=== PATIENT | female | born 1990 | race Caucasian/White ===

== ENCOUNTER 2023-12-09 18:44 | Day surgery (SDC) | payer BC ==
[2023-12-09] MEDS ORDERED: hydrALAZINE 20 MG/ML VIAL SLOW IVP PRN (19:30)
[2023-12-09 19:45] VITALS: BMI 26.8
== END 2023-12-09 22:45 | disposition home or self-care (01) ==
LOC: CSHLD/OP 18:44
PROVIDERS: ATTEND Advanced Practice Midwife
DX: O47.1 False labor at or after 37 completed weeks of gestation (principal); O34.211 Maternal care for low transverse scar from previous cesarean delivery; Z88.2 Allergy status to sulfonamides; Z3A.40 40 weeks gestation of pregnancy
CPT/HCPCS: 99283

== ENCOUNTER 2023-12-12 01:00 | Inpatient (IN) | payer BC ==
[2023-12-12 01:36] VITALS: BMI 28.4
[2023-12-12] MEDS ORDERED: Acetaminophen 500 MG TAB PO PRN (04:10)
[2023-12-12] MEDS ORDERED: Methylergonovine 0.2 MG/ML VIAL IM PRN (04:10)
[2023-12-12] MEDS ORDERED: Misoprostol 200 MCG TAB PR PRN (04:10)
[2023-12-12] MEDS ORDERED: Lidocaine 1% (PF) 30 ML VIAL SC PRN (04:10)
[2023-12-12] MEDS ORDERED: Diphenoxylate HCl/Atropine Tablet PO PRN (04:10)
[2023-12-12] MEDS ORDERED: Carboprost 250 MCG/ML AMP IM PRN (04:10)
[2023-12-12] MEDS ORDERED: Tranexamic Acid 1,000 MG/10 ML VIAL IVP PRN (04:10)
[2023-12-12] MEDS ORDERED: Promethazine HCl 25 MG/ML VIAL IM PRN ×3 (04:10→13:01)
[2023-12-12] MEDS ORDERED: hydrALAZINE 20 MG/ML VIAL SLOW IVP PRN ×2 (04:10→15:17)
[2023-12-12] MEDS ORDERED: Ibuprofen 800 MG TAB PO PRN (04:10)
[2023-12-12] MEDS ORDERED: Oxytocin 30 units/NS 500 ML 500 ML IV SCH ×2 (04:15)
[2023-12-12] MEDS: Lactated Ringer's 1,000 ML IV SCH (04:20)
[2023-12-12 04:59] LABS: Hematocrit 35.9 % (34.9-44.5); Hemoglobin 12.9 g/dL (12.0-15.5); Mean Corpuscular HGB CONC 35.9 g/dL (32.0-36.0); Mean Corpuscular Hemoglobin 32.3 pg (27.0-33.0); Mean Corpuscular Volume 89.8 fL (81.6-98.3); Mean Platelet Volume 11.7 fL (7.4-10.4); Platelet Count 201 10x3/uL (150-450); RBC Distribution Width 13.1 % (11.5-14.5)
[2023-12-12 05:38] LABS: Syphilis Antibody Nonreactive (Nonreactive); Syphilis Antibody Index 0.04 S/CO (<1.00 Non-Reactive)
[2023-12-12 05:40] LABS: HBsAg Index 0.14 S/CO (0-0.99); Hep B Surf Ag - L&D Non-Reactive S/CO (NonReactive)
[2023-12-12] MEDS: fentaNYL 50 mcg/mL 1 mL Vial SLOW IVP PRN (05:45)
[2023-12-12] MEDS: fentaNYL/Ropivacaine Epidural 100 ML ONE (07:45)
[2023-12-12] MEDS: Ondansetron PF 4 MG/2 ML Vial IVP PRN (09:43)
[2023-12-12] MEDS: CEFAZOLIN 2 GM VIAL ONE ×2 (11:23→17:28)
[2023-12-12] MEDS: Azithromycin 500 MG VIAL ONE ×2 (11:24→17:28)
[2023-12-12] MEDS ORDERED: Bicitra 30 ML UDCUP PO PRN (11:31)
[2023-12-12] MEDS ORDERED: Famotidine/PF 20 mg/2ml Vial SLOW IVP PRN (11:31)
[2023-12-12] MEDS ORDERED: Azithromycin 500 MG in Sodium Chloride 0.9% 250 ML 250 ML IVPB SCH (11:45)
[2023-12-12] MEDS ORDERED: CEFAZOLIN 2 GM in Sodium Chloride 0.9% 100 ML IVPB SCH (11:45)
[2023-12-12 12:17] LABS: Analyzer IN Cardio CS NICU; RapidComm Collect By CBN
[2023-12-12 12:20] LABS: Analyzer IN Cardio CS NICU; RapidComm Collect By CBN; pH (Cord, venous) 7.325 (7.250-7.350)
[2023-12-12] MEDS ORDERED: Naloxone HCl 0.4 mg/ml Vial IVP PRN ×4 (13:00→13:01)
[2023-12-12] MEDS ORDERED: Ondansetron PF 4 MG/2 ML Vial IVP PRN ×3 (13:00→13:01)
[2023-12-12] MEDS ORDERED: ePHEDrine Sulfate 50 MG/10 ML VIAL SLOW IVP PRN (13:00)
[2023-12-12] MEDS ORDERED: Acetaminophen 325 MG TAB PO PRN (13:00)
[2023-12-12] MEDS ORDERED: Moisturizing Cream (Eucerin) 113 GM JAR TOP PRN ×2 (13:00→13:01)
[2023-12-12] MEDS ORDERED: diphenhydrAMINE 50 MG/ML VIAL IVP PRN ×2 (13:00→13:01)
[2023-12-12] MEDS ORDERED: Lactated Ringer's 500 ML IV PRN (13:00)
[2023-12-12] MEDS ORDERED: Communication Order-Pharmacy FS SCH ×2 (13:00→13:15)
[2023-12-12] MEDS ORDERED: fentaNYL 2 mcg/Ropivacaine 0.2% Epidural 100 ML CADD EPIDURAL SCH (13:00)
[2023-12-12] MEDS ORDERED: Naloxone HCl 0.4 mg/ml Vial IV PRN (13:01)
[2023-12-12] MEDS ORDERED: Meperidine HCl/PF 25 MG (1 mL) VIAL SLOW IVP PRN (13:01)
[2023-12-12] MEDS ORDERED: fentaNYL 50 mcg/mL 1 mL Vial SLOW IVP PRN (13:01)
[2023-12-12] MEDS: Ketorolac Tromethamine 30 MG (1 mL) VIAL IVP SCH (14:52)
[2023-12-12] MEDS ORDERED: Boostrix 0.5 ML (Tdap) VIAL (>/=7 yrs of age) IM ONE (15:17)
[2023-12-12] MEDS: fentaNYL 50 mcg/mL 1 mL Vial ONE ×2 (17:28→17:29)
[2023-12-12] MEDS: ePHEDrine Sulfate 50 MG/10 ML VIAL ONE (17:28)
[2023-12-12] MEDS: Dexmedetomidine 200 MCG/2 ML VIAL ONE (17:30)
[2023-12-12] MEDS ORDERED: Acetaminophen/Codeine 30-300mg Tablet PO PRN (17:59)
[2023-12-12] MEDS ORDERED: Docusate 100 MG CAP PO PRN (18:03)
[2023-12-12] MEDS: Lactated Ringer's 500 ML IV SCH (18:15)
[2023-12-13] MEDS: HYDROcodone/Acetaminophen 5/325 mg Tablet PO PRN ×2 (01:14→10:26)
[2023-12-13 03:45] LABS: #Basophils 0.05 10x3/uL (0.0-0.2); #Eosinphils 0.02 10x3/uL (0.0-0.5); #Monocytes 0.86 10x3/uL (0.0-1.1); #Neutrophils 10.64 10x3/uL (1.5-8.4); %Basophils 0.4 % (0.0-2.0); %Eosinophils 0.2 % (0.0-6.0); %Lymphocytes 9.1 % (18.0-47.0); %Monocytes 6.6 % (0.0-10.0); %Neutrophils 81.3 % (40.0-75.0); Hematocrit 30.9 % (34.9-44.5); Hemoglobin 10.6 g/dL (12.0-15.5); Mean Corpuscular HGB CONC 34.3 g/dL (32.0-36.0); Mean Corpuscular Hemoglobin 31.7 pg (27.0-33.0); Mean Corpuscular Volume 92.5 fL (81.6-98.3); Platelet Count 168 10x3/uL (150-450); RBC Distribution Width 13.4 % (11.5-14.5); Red Blood Cell (RBC) Count 3.34 10x6/uL (3.90-5.03); White Blood Cell (WBC) Count 13.1 10x3/uL (3.5-10.5)
[2023-12-13] MEDS: Ketorolac Tromethamine 30 MG (1 mL) VIAL IVP PRN (08:20)
[2023-12-13] MEDS: Prenatal Vitamin 1 TAB PO SCH (08:20)
[2023-12-13] MEDS: Senokot S 8.6-50 MG TAB PO SCH (08:20)
[2023-12-13] MEDS: Simethicone Chewable 80 MG TAB PO SCH (08:20)
[2023-12-13] MEDS: Polyethylene Glycol 3350 17 GM Packet PO SCH (08:38)
[2023-12-13] MEDS: Enoxaparin 40 MG (0.4 mL) SYRINGE SC SCH (10:25)
[2023-12-13] MEDS: Simethicone Chewable 80 MG TAB PO PRN (14:28)
[2023-12-13] MEDS: Ibuprofen 800 MG TAB PO SCH (14:28)
[2023-12-14 04:48] LABS: #Basophils 0.06 10x3/uL (0.0-0.2); #Eosinphils 0.07 10x3/uL (0.0-0.5); #Monocytes 0.67 10x3/uL (0.0-1.1); #Neutrophils 9.19 10x3/uL (1.5-8.4); %Basophils 0.5 % (0.0-2.0); %Eosinophils 0.6 % (0.0-6.0); %Lymphocytes 12.7 % (18.0-47.0); %Monocytes 5.6 % (0.0-10.0); %Neutrophils 76.5 % (40.0-75.0); Hematocrit 29.2 % (34.9-44.5); Hemoglobin 9.8 g/dL (12.0-15.5); Mean Corpuscular HGB CONC 33.6 g/dL (32.0-36.0); Mean Corpuscular Hemoglobin 31.6 pg (27.0-33.0); Mean Corpuscular Volume 94.2 fL (81.6-98.3); Platelet Count 195 10x3/uL (150-450); RBC Distribution Width 13.4 % (11.5-14.5)
[2023-12-14] MEDS ORDERED: Bupivacaine 0.25% HCL 30 ML VIAL ONE (08:00)
[2023-12-14] MEDS ORDERED: Bupivacaine PF 0.5% 30 ML VIAL ONE (08:00)
[2023-12-14] MEDS ORDERED: Terbutaline Sulfate 1 MG/ML VIAL ONE (08:00)
[2023-12-14] MEDS: Polyethylene Glycol 3350 17 GM Packet PO SCH (09:19)
[2023-12-14 10:13] VITALS: BP 121/73; TEMP 98.1
== END 2023-12-14 14:00 | disposition home or self-care (01) | DRG 787 ==
LOC: CSHLD/OP 01:00 → CSHLD 04:10 → CSHPP 16:12
PROVIDERS: ADMIT Obstetrics & Gynecology; ATTEND Obstetrics & Gynecology
PROC: 10D00Z1 Extraction of Products of Conception, Low, Open Approach (ICD-10-PCS; principal; 2023-12-12)
DX: O48.0 Post-term pregnancy (principal); O72.1 Other immediate postpartum hemorrhage; Z3A.41 41 weeks gestation of pregnancy; Z37.0 Single live birth; Z88.2 Allergy status to sulfonamides; O34.211 Maternal care for low transverse scar from previous cesarean delivery; O76 Abnormality in fetal heart rate and rhythm complicating labor and delivery; O66.41 Failed attempted vaginal birth after previous cesarean delivery; O62.4 Hypertonic, incoordinate, and prolonged uterine contractions
CPT/HCPCS: 36415; 82805; 85025; 85027; 86780; 86850; 86900; 86901; 87340; J0456; J0665; J1650; J1885; J2405; J3010; J3105; J7120